=== PATIENT | female | born 1960 | race Caucasian/White ===

== ENCOUNTER 2017-11-27 15:35 | Inpatient (IN) | payer OTHER ==
[~2017-11-27] VITALS: Ht 177.8 cm; Wt 88.5 kg
[~2017-11-27 15:35] MED LIST: AMITRIPTYLINE H10 M1; AUGMENTIN 875875 MG PO; BENTYL 20 MG TA20 M1 PO; BENTYL20 MG PO; BLADDER 2.2 TA1 EACH PO; CALCIUM 500 +1 EAC5; CIPRO250 M1 PO; CLARITIN; DICLOFENAC SODI75 MG; FLEXERIL PO; LOPRESSOR; MAGNESIUM100 MG PO; MEDROL DOSPAK21 TA1 PO; NEXIUM40 MG PO; OMEPRAZOLE; PERCOCET 5-3251 EACH PO; PERCOCET 7.5-31 EACH PO; PRILOSEC 20 MG20 MG PO; REGLAN 10 MG TA10 MG PO; TOPROL XL25 MG; ZANTAC 150MG T150 M1 PO; ZOFRAN ODT4 MG PO; ZOFRAN4 MG PO
[2017-11-27] MEDS ORDERED: ROPINIROLE HCL2 MG PO (15:43)
[2017-11-27] MEDS ORDERED: FLEXERIL PO (15:44)
[2017-11-27] MEDS ORDERED: TOPROL XL25 MG PO (15:45)
[2017-11-27] MEDS ORDERED: ZANTAC 150MG T150 MG PO (15:47)
[2017-11-27] MEDS ORDERED: NEURONTIN100 MG PO (15:47)
[2017-11-27] MEDS ORDERED: ALLERGY10 M2 PO (15:49)
[2017-11-27] MEDS ORDERED: CENTRUM SILVER1 EAC4 PO (15:50)
[2017-11-27] MEDS ORDERED: COLACE100 MG PO (15:51)
[2017-11-27] MEDS ORDERED: ACYCLOVIR 400400 MG PO (15:54)
[2017-11-27] MEDS ORDERED: ZOVIRAX5 GM TOP (15:56)
[2017-11-27] MEDS ORDERED: ENOXAPARIN40 MG/0.1 SUBQ (15:57)
[2017-11-27] MEDS ORDERED: OXYCODONE HCL 55 MG PO (15:59)
[2017-11-27] MEDS ORDERED: OXYCODONE HCL10 MG PO (16:03)
[2017-11-27 18:00] VITALS: BP 118/77
--- NOTE | 2017-11-27 19:03 | NUR ---
PT. ARRIVED PER W/C VAN TO ROOM 321 ALERT ORIENTED PLEASANT COOPERATIVE. HX OF FALL WITH L FEMUR FX ORIF 11/24 20% WB FLAT L FOOT. TRANSFERS WITH SBA G BELT WALKER FROM W/C TO BED. NEEDED ASSIST TO LIFT L FOOT LEG INTO BED. ANSWERS QUESTIONS APPROPRIATELY WITH ASSESSMENT. ORIENTED TO ROOM REHAB ROUTINE. USE OF CALL LIGHT FOR ASSIST. L LEG HAS EDEMA PRESENT THIGH AND KNEE MORE SO WEARS DIANDRA HOSE BILATERALLY. ALSO SCD TO RT. LEG AT HS. RATES PAIN A 7 ON PAIN SCALE. UP TO BSC TO VOID X 1. REPORT GIVEN TO NIGHT NURSE.
--- NOTE | 2017-11-27 23:38 | NUR ---
ASSUMED CARE AT 1930. PATIENT S/P FALL WITH FX LT FEMUR. DRESSINGS C/D/I. RESTING IN BED. UP TO BSC TO VOID ONCE, UP TO TOILET ANOTHER TIME. STATES THAT SHE WILL PREFER USING BSC FOR NOW. NEEDS HELP GETTING LEFT LEG INTO BED. CAN MOVE HERSELF IN BED. TURNS SELF. LT LEG ELEVATED AND HEELS OFFLOADED. TAKES PILLS WHOLE WITH WATER. STATES SHE HAD LOVENOX THIS AM, SO NOT GIVEN TONOC. MEDICATED FOR PAIN WITH GOOD RELIEF, SEE MAR. HX MANY ALLERGIES. STATES ALLERGY TO VALACYCLOVIR. WAS ORDERED ACYCLOVIR, BUT HAD NOT TAKEN DOSE. DISCUSSED WITH PATIENT AND SHE THINKS SHE HAD SEVERE HIVES WITH IT PRIOR. PATIENT DECIDED NOT TO TAKE ACYCLOVIR, PHARMACY NOTIFIED. PATIENT STATES THAT THE PHYSICIANS AT [facility] WANTED HER TO HAVE TWO ENSURES A DAY AND SHE WANTS YOGURT DAILY. THESE COMMUNICATED ON VP SOFTWARE ENGINEERING CONSULT. SEE ORDERS. WEIGHT BEARING RESTRICTIONS OBSERVED. CALL LITE IN REACH. BED ALARM ON. HOURLY ROUNDS CONTINUE.
[2017-11-28 04:03] LABS: HEMATOCRIT 21.8 % (37.0-47.0); HEMOGLOBIN 7.5 gm/dL (12.0-15.0); MCH 34.1 pg (26.0-34.0); MCHC 34.1 g/dL (28.0-37.0); MCV 99.9 fL (80.0-100.0); MPV 8.5 fl. (7.2-11.1); RBC 2.19 mil/uL (4.20-5.00); RDW-CV 13.9 % (10.5-14.5); WBC 6.3 thou/uL (4.0-11.0)
[2017-11-28 04:09] LABS: CALCIUM 8.3 mg/dL (8.5-10.1); CREATININE 0.6 mg/dL (0.6-1.3)
--- NOTE | 2017-11-28 06:05 | NUR ---
RESTED IN BED ALL SHIFT. UP TO VOID ONCE PER TOILET, OTHER TIMES PER BSC. NO LIFTING/LOWERING ASSIST NEEDED, PATIENT ABLE TO STAND PIVOT FROM BED TO BSC. DOES OWN HYGIENE. MEDICATED THREE TIMES FOR PAIN THIS SHIFT WITH GOOD RELIEF. ENCOURAGED PAIN MEDS PRIOR TO THERAPIES. ABLE TO POSITION SELF IN BED. TAKES PILLS WHOLE WITH WATER. HOURLY ROUNDS CONTINUE. BED ALARM ON. CALL LITE IN REACH.
[2017-11-28 08:00] VITALS: BP 124/71
[2017-11-28 08:12] VITALS: BP 129/71
--- NOTE | 2017-11-28 09:37 | NUR ---
Nutrition: Pt admitted to Rehab with Lt femur FX. Usual wt is ~200#. Consult received for pt requesting Boost b.i.d. and yogurt daily - RD ordered these. Labs, RX, hx noted. Pt appears at low nutrition risk. Will follow weekly.
--- NOTE | 2017-11-28 11:17 | NUR ---
PT CARE ASSUMED AT 0730, ASSESSMENT AND VITAL SIGNS COMPLETED DOCUMENTED. PLAN OF CARE AND THERAPY EXPLAINED TO PT. FALL PRECAUTIONS AND HOURLY ROUNDING HAVE BEEN IMPLEMENTED. DRESSINGS C/D/I TO LEFT HIP, THIGH AND KNEE. PRN PAIN MEDICATIONS GIVEN WITH GOOD RELIEF OBTAINED. NO ACUTE DISTRESS AT THIS TIME, WILL CONTINUE TO MONITOR.
--- NOTE | 2017-11-28 15:24 | NUR ---
SW met with pt to complete initial assessment, introduce self, and SW role. Pt alert at times during conversation and oriented although very sleepy at times. Pt lives at home with her and her works 10 hr shifts and also is still healing from hip surgery so would not be able to assist pt physically. Pt said she has children but that they live in [place] and are supportive but would not be able to assist with needs so pt goal is to be close to independent at dc. SW reviewed team conference summary with pt. Plan for team to reteam pt length of stay during next team conference on Tuesday 12/05. Pt did not have any questions or concerns at this time. SW to continue to follow to assist with safe dc planning.
[2017-11-28 19:50] VITALS: BP 116/46
--- NOTE | 2017-11-28 19:50 | NUR ---
SITTING UP IN BED VISITING WITH SEVERAL VISITORS. FLEXERIL GIVEN. STATES LEFT HIP PAIN AT A "7" BUT TOO SOON FOR OXY IR. LEFT HIP DRESSINGS DRY/INTACT. SNACK PROVIDED.
--- NOTE | 2017-11-29 05:10 | NUR ---
AT BEDTIME AMBULATED TO THE BATHROOM WITH SBA, GAITBELT, WALKER. NEEDED ASSIST WITH LIFTING LEFT LEG ONTO A STEP STOOL WHILE SITTING ON THE TOILET. DOES OWN HYGIENE. MINIMAL ASSIST WITH CLOTHING DUE TO STEADYING ASSIST. VOIDED PER BEDSIDE COMMODE X 2 DURING THE NIGHT. LAST GIVEN PAIN MEDS AT 0447 FOR C/O HIP PAIN RATED "7". HOURLY ROUNDING IN PROGRESS.
[2017-11-29 08:00] VITALS: BP 107/64
--- NOTE | 2017-11-29 16:47 | NUR ---
PATIENT HAS BEEN A/O X 4 THIS SHIFT. MEDICATED FOR LEFT HIP PAIN WITH PARTIAL RELIEF NOTED WITH PRN OXY IR AND FLEXERIL. ICE PACKS PROVIDED AFTER THERAPY SESSIONS TO LEFT HIP. DIANDRA HOSE IN PLACE, DRESSING INTACT TO LEFT HIP. PATIENT HAS BEEN TOE TOUCH WEIGHT BEARING TO LEFT LEG. ATTENDED THERAPIES THIS SHIFT. UP WITH ASSIST OF 1 WITH GB AND WALKER, STAFF ASSISTING WITH LEFT LEG. PATIENT TO DINING ROOM FOR MEALS. BOOST SUPPLEMENTS PROVIDED REQUESTED. HAS HAD BILATERAL LEGS ELEVATED WHILE IN BED. STARTED ON MIRALAX THIS SHIFT FOR CONSTIPATION. AT BEDSIDE THIS AFTERNOON. FALL PRECAUTIONS IN PLACE. HOULRY ROUNDING COMPLETED. CALL LIGHT WITHIN REACH AND ABLE TO MAKE NEEDS KNOWN.
[2017-11-29 20:00] VITALS: BP 111/60
--- NOTE | 2017-11-30 05:05 | NUR ---
ASSUMED PT CARE AT 1930. PT ALERT AND ORIENTED X4, PLEASANT AND COOPERATIVE WITH CARES. PT UP TO BSC WITH SBA, GAITBELT AND WALKER. PT NEEDS ASSIST LIFTING LEFT LEG ONTO A STEP STOOL WHILE SITTING ON THE COMMODE. DOES OWN PERICARES. DRESSING INTACT TO LEFT HIP. PT IS TTWB TO LEFT LEG AND RLE WBAT. BILATERAL LEGS ELEVATED WHILE IN BED. ICE PACKS PROVIDED FOR LEFT HIP. VOIDED PER BSC X2 OVERNIGHT. PRN PAIN MEDICATION X2 OVERNIGHT AND FLEXERIL X1. FALL PRECAUTIONS IN PLACE. BED ALARM ON FOR SAFETY. CALL LIGHT AND FREQUENTLY USED ITEMS WITHIN REACH. HOURLY ROUNDING IN PROGRESS.
[2017-11-30 07:00] VITALS: BP 105/59
[2017-11-30 08:00] VITALS: BP 105/59
--- NOTE | 2017-11-30 16:35 | NUR ---
AM ASSESSMENT AND VITAL SIGNS COMPLETED DOCUMENTED. PT STARTED THE MORNING COMPLAINING OF EXTREME PAIN. PRN PAIN MEDICATION GIVEN WITH GOOD RESULTS. PT ALSO TAKING FLEXERIL AND GABAPENTIN. DRESSINGS TO LEFT HIP AND THIGH ARE C/D/I. PT IS PLEASANT AND COOPERATIVE BUT HAS A TENDENCY TO GET ANXIOUS VERY EASILY. REASSURANCE GIVEN NEEDED. PT TRANSFERS AND AMBULATES SHORT DISTANCES WITH GAIT BELT, WALKER AND MIN ASSIST. PT IS PROGRESSING TOWARD DISCHARGE GOALS. HOURLY ROUNDING AND FALL PRECAUTIONS IN PLACE.
[2017-11-30 20:00] VITALS: BP 115/50
--- NOTE | 2017-12-01 05:09 | NUR ---
ASSUMED PT CARE AT 1930. PT ALERT AND ORIENTED X4, PLEASANT AND COOPERATIVE WITH CARES. PT REQUESTING TO BE AWAKENED Q4 HOURS FOR PRN PAIN MEDICATION. PT UP TO BSC WITH SBA, GAIT BELT AND WALKER. PT NEEDS ASSIST LIFTING LEFT LEG ONTO STEP STOOL WHILE SITTING ON COMMODE. PT ABLE TO LIFT LEFT LEG INTO BED ONCE WITHOUT ASSIST. DOES OWN PERICARES. DRESSING TO LEFT HIP C/D/I. PT IS TTWB TO LEFT LEG AND RLE WBAT. BILATERAL LEGS ELEVATED WHILE IN BED. ICE PACKS PROVIDED FOR LEFT HIP. VOIDED PER BSC X3 OVERNIGHT. FALL PRECAUTIONS IN PLACE. BED ALARM ON FOR SAFETY. CALL LIGHT AND FREQUENTLY USED ITEMS WITHIN REACH. HOURLY ROUNDING IN PROGRESS.
[2017-12-01 08:00] VITALS: BP 110/63
[2017-12-01 11:54] LABS: HEMATOCRIT 24.7 % (37.0-47.0); HEMOGLOBIN 8.2 gm/dL (12.0-15.0); MCH 34.4 pg (26.0-34.0); MCHC 33.2 g/dL (28.0-37.0); MCV 103.6 fL (80.0-100.0); MPV 7.4 fl. (7.2-11.1); NUCLEATED RBCS 0 /100WBC; PLATELET COUNT* 374 thou/uL (150-400); RBC 2.39 mil/uL (4.20-5.00); WBC 6.5 thou/uL (4.0-11.0)
[2017-12-01 12:01] LABS: CALCIUM 8.9 mg/dL (8.5-10.1); CREATININE 0.6 mg/dL (0.6-1.3)
[2017-12-01 12:10] LABS: ABSOLUTE EOSINOPHILS 0.4 thou/uL (0.0-0.7); ABSOLUTE MONOCYTES 0.3 thou/uL (0.0-1.2); ABSOLUTE NEUTROPHILS 3.8 thou/uL (1.6-8.1); ATYPICAL LYMPHS 3 %
[2017-12-01 12:11] LABS: PLATELET ESTIMATE ADEQUATE
--- NOTE | 2017-12-01 16:22 | NUR ---
AM ASSESSMENT AND VITAL SIGNS COMPLETED DOCUMENTED. PT HAS HAD A GOOD DAY, COMPLETING ALL THERAPY SESSIONS WITH INTERMITTENT REST PERIODS. PAIN WELL CONTROLLED WITH OXY IR, GABAPENTIN AND FLEXERIL. COLD PACKS PLACED ON LEFT HIP AND THIGH SEVERAL TIMES FOR SHORT PERIODS. PT HAS NOT REQUIRED ANY ASSISTANCE WITH LIFTING HER LEG INTO OR OUT OF BED, SHE IS PLEASED WITH HER PROGRESS. FALL PRECAUTIONS AND HOURLY ROUNDING CONTINUE.
[2017-12-01 20:00] VITALS: BP 105/66
--- NOTE | 2017-12-02 05:04 | NUR ---
ASSUMED PT CARE AT 1930. PT ALERT AND ORIENTED X4, SITTING UP IN BED VISITING WITH . PLEASANT AND COOPERATIVE WITH CARES. PT REQUESTING TO BE AWAKENED FOR PAIN MEDICATION Q4 OVERNIGHT. PT UP TO BSC WITH GAIT BELT AND WALKER. PT DOES OWN PERICARES. PT NEEDS ASSIST TO GET LEGS BACK IN BED AND LEFT FOOT ONTO STEP STOOL WHILE SITTING ON COMMODE. DRESSING TO LEFT HIP C/D/I. ICE PACKS PROVIDED FOR PAIN RELIEF. VOIDED PER BSC X3 OVERNIGHT. FALL PRECAUTIONS IN PLACE. BED ALARM ON FOR SAFETY. USES CALL LIGHT APPROPRIATELY. CALL LIGHT AND FREQUENTLY USED ITESM WTIHIN REACH. HOURLY ROUNDING IN PROGRESS, WILL CONTINUE TO MONITOR.
--- NOTE | 2017-12-02 07:02 | NUR ---
PT REQUESTED PRN TYLENOL AND ICE STATING THAT SHE WAS IN INCREASED PAIN "ALL OF A SUDDEN" ASCRIBING SAME TO THE CHANGE IN THE WEATHER.
[2017-12-02 08:00] VITALS: BP 100/47
--- NOTE | 2017-12-02 09:51 | NUR ---
AM ASSESSMENT AND VITAL SIGNS COMPLETED DOCUMENTED. PT AWAKE AND SITTING IN RECLINER. PAIN WELL CONTROLLED AT THIS TIME. PT'S IS HERE AND THEY ARE READING THE BIBLE WITH TENRIISM MUSIC PLAYING. CALL LIGHT WITHIN REACH. FALL PRECAUTIONS AND HOURLY ROUNDING CONTINUE.
--- NOTE | 2017-12-02 18:42 | NUR ---
PT HAS RESTED INTERMITTENTLY TODAY, HAS HAD MULTIPLE VISITORS HERE. PRN PAIN MEDICATION AND COLD PACKS USED TO MANAGE PAIN. PT IS NOW SBA WITH MOST ACTIVITIES, USES A GAIT BELT AND WALKER. HOURLY ROUNDING AND FALL PRECAUTIONS IN PLACE.
[2017-12-02 20:00] VITALS: BP 108/56
[2017-12-03 04:17] LABS: HEMOGLOBIN 8.1 gm/dL (12.0-15.0); MCH 34.9 pg (26.0-34.0); MCHC 33.8 g/dL (28.0-37.0); MCV 103.2 fL (80.0-100.0); MPV 7.7 fl. (7.2-11.1); RBC 2.32 mil/uL (4.20-5.00); RDW-CV 15.4 % (10.5-14.5); WBC 7.5 thou/uL (4.0-11.0)
[2017-12-03 04:33] LABS: CALCIUM 8.5 mg/dL (8.5-10.1); CREATININE 0.7 mg/dL (0.6-1.3); POTASSIUM 4.6 mmol/L (3.5-5.1)
--- NOTE | 2017-12-03 05:27 | NUR ---
ASSUMED CARES AT 1920. PT ALERT AND ORIENTED. PLEASANT. S/P LEFT FEMUR ORIF. 20% TTWB LLE. DRESSINGS INTACT TO LEFT LEG. TAKES PILLS WHOLE WITHOUT ISSUES. PT REQUESTED TO BE AWAKEN FOR PAIN MEDS EVERY 4 HRS. KNEE HIGH TEDS REMOVED AT HS. SHE IS A MIN ASSIST WITH GAIT BELT AND WALKER. DID GET UP TO BATHROOM DURING THE NIGHT INSTEAD OF USING BSC. DOES OWN CARES. ICE PACK TO LLE PRN. PT SLEPT OFF AND ON. USED CALL LIGHT APPROPRIATELY. HOURLY ROUNDING COMPLETED.
[2017-12-03 08:00] VITALS: BP 123/70
--- NOTE | 2017-12-03 16:10 | NUR ---
ASSUMMED CARE OF PT AT 0730, PT ALERT AND ORIENTED, TRANSFERS WITH SBA, GB WALKER, AMBULATES TO BATHROOM, PT COMPLAINS OF PAIN IN LEFT LEG, MEDICATED PER ORDERS, DRESSING TO LEFT LEG INCISION C/D/I. TAKING FOOD AND FLUIDS WELL, THIGH HI TEDS, PARTICIPATED IN ALL THERAPIES, HOURLY ROUNDING COMPLETED, ASSESSMENT COMPLETE, WILL CONTINUE TO MONITOR.
[2017-12-03 20:00] VITALS: BP 120/70
--- NOTE | 2017-12-04 05:15 | NUR ---
ASSUMED PT CARES AT 1930. PT ALERT AND ORIENTED X4, POLITE AND COOPERATIVE WITH CARES. S/P LEFT FEMUR ORIF. 20% TTWB LLE. DRESSINGS TO LEFT LEG C/D/I. PRN PAIN MEDICATION Q4 PER PT REQUEST. KNEE HIGH TEDS ON RIGHT LEG AND THIGH HIGH TEDS ON RIGHT LEG, BOTH REMOVED AT HS. PT UP TO BATHROOM TO VOID SEVERAL TIMES OVERNIGHT WITH GB AND WALKER. PT DOES OWN PERICARES. ICE PACK TO LLE PRN. CALL LIGHT AND FREQUENTLY USED ITEMS WITHIN REACH. USES CALL LIGHT APPROPRIATELY. HOURLY ROUNDING IN PROGRESS, WILL CONTINUE TO MONITOR.
[2017-12-04 08:00] VITALS: BP 122/76
--- NOTE | 2017-12-04 16:26 | NUR ---
SW called and spoke with pt Kelton as pt was resting and was with nurse. SW mentioned team conference tomorrow and pt said he felt pt was close to be ready to return home. Pt said that he and pt expressed possible need for a RW to be ordered at dc. Pt said that he did not have any concerns with pt dc. Pt said that he will be with pt at dc, will be her ride home, and that he will help make sure that she gets into the home and settled safely. SW to continue to follow.
--- NOTE | 2017-12-04 17:08 | NUR ---
ASSUMMED CARE OF PT AT 0730, PT ALERT AND ORIENTED, TRANSFERS WITH SBA GB WALKER, COMPLAINS OF PAIN IN LEFT LEG, MEDICATED PER ORDERS AND COLD PACKS APPLIED INTERMITTENTLY THRUOUT SHIFT, AMBULATES TO BATHROOM TO VOID, TAKING FOOD AND FLUIDS WELL, DRESSING TO LEFT LEG C/D/I. PARTICIPATED IN ALL THERAPIES, HOURLY ROUNDING COMPLETED, ASSESSMENT COMPLETE, WILL CONTINUE TO MONITOR
[2017-12-04 19:48] VITALS: BP 117/51
--- NOTE | 2017-12-05 05:08 | NUR ---
ASSUMED PT CARE AT 1930. PT ALERT AND ORIENTED X4, POLITE AND COOPERATIVE WITH CARES. S/P LEFT FEMUR ORIF. 20% TTWB LLE. DRESSING TO LEFT LEG C/D/I. PRN PAIN MEDICATION Q4 PER PT REQUEST. KNEE HIGH TEDS ON RIGHT LEG AND THIGH HIGH TEDS ON LEFT LEG, BOTH REMOVED AT HS. PT UP TO BATHROOM TO VOID SEVERAL TIMES OVERNIGHT WITH GB AND WALKER. PT DOES OWN PERICARES. ICE PACK TO LLE PRN. MIRALAX PRN PER PT REQUEST. STOOL X1 THIS SHIFT. CALL LIGHT AND FREQUENTLY USED ITEMS WITHIN REACH. USES CALL LIGHT APPROPRIATELY. HOURLY ROUNDING IN PROGRESS, WILL CONTINUE TO MONITOR.
[2017-12-05 07:30] VITALS: BP 114/61
[2017-12-05 13:17] VITALS: BP 114/61
--- NOTE | 2017-12-05 14:15 | NUR ---
SW met with pt to review team conference summary. Plan for pt to dc home with on Sunday. Pt in agreement with plan. Pt already has a rolling walker but would like another and SW to follow up with work comp to see if this is a possibility for the work comp to cover otherwise pt/pt discussed picking up a walker from a thrift store. SW discussed HH services to follow and SW to discuss with work comp the options...pt showed SW a list possibly [facility] would be covered through work comp. Pt to come in for family training arranged with pt and PT. SW to continue to follow to assist with safe dc planning.
--- NOTE | 2017-12-05 16:59 | NUR ---
ASSUMED CARE AT 0730 PATIENT ALERT/ORIENTED, UP WITH STANDBY ASSIST AND WALKER, DRESSING TO LEFT LEG IS CLEAN/DRY/INTACT. PAIN MEDS GIVEN REQUESTED, FLEXERIL GIVEN X1 THIS SHIFT. PARTICIPATED IN ALL THERAPIES TODAY, TO DINING ROOM FOR MEALS. BED/CHAIR ALARMS IN PLACE. CALL LIGHT IN REACH, HOURLY ROUNDING COMPLETED. PATIENT TO BE DISCHARGE HOME ON SUNDAY, FOLLOW UP APPOINTMENT WITH HANH CENTENO ON 12/12/17 WITH SUTURES TO BE REMOVED IN OFFICE.
[2017-12-05 19:45] VITALS: BP 130/71
--- NOTE | 2017-12-06 01:42 | NUR ---
ASSUMED CARE @ 1924-12/05-SUN.AWAKE IN BED W/ HOB UP WATCHING TV.TEDS OFF ALREADY OFF @ THIS TIME.REQUESTED ICE PACK TO LEFT LE @ 1944 & APPLIED. WARM BLANKET PUT ON PATIENT ALSO @ 1944.SEE FIRST PAIN MANAGEMENT @ 2009. BED ALARM PUT ON @ 2014.SBA FOR ALL TRANSFERS & TOILETING.20% WB LEFT LE OBSERVED DURING TRANSFERS & AMBULATION. CAME TO VISIT AFTER HIS WORK. SEE 2ND PAIN MANAGEMENT W/ PRN FLEXERIL @ 2302.ON HOURLY ROUNDS.
[2017-12-06 03:26] VITALS: BP 114/61
[2017-12-06] MEDS ORDERED: IRON325 PO (03:49)
[2017-12-06] MEDS ORDERED: TYLENOL325 MG PO (03:54)
--- NOTE | 2017-12-06 05:27 | NUR ---
SLEPT LATE.SLEEPING SINCE 0000-12/06-SUNDAY.AWAKE BRIEFLY @ 0100 & @ 0500-FOR 3RD PAIN MANAGEMENT W/ 2 PACKAGES EMILY CRACKERS.BRP W/ WALKER W/ SBA X4.TOOK ALL APPLE JUICE X2 W/ BISCUIT & EGGS HS SNACKS. BROUGHT HS SNACKS. MODIFIED IND W/ WALKER TODAY-12/06-SUNDAY.FOR DISCHARGE SUNDAY-12/07.
[2017-12-06 07:52] VITALS: BP 118/65
--- NOTE | 2017-12-06 16:26 | NUR ---
SW spoke with pt about finalizing safe dc plans. Pt to dc home with tomorrow. SW spoke with work comp and rep from company they use to arrange DME and HH. Orders faxed to rep who plans to arrange for RW, tub bench, and toilet riser and HH. SW to continue to follow to finalize dc for Sunday.
--- NOTE | 2017-12-06 16:37 | NUR ---
ASSUMED CARE AT 0730 PATIENT ALERT/ORIENTED, PAIN MEDS GIVEN REQUESTED FOR LEFT LEG PAIN, DRESSING TO LEFT LEG C/D/I, UP MOD I IN ROOM. PARTICIPATED IN ALL THERAPIES TODAY, TO DINING ROOM FOR MEALS, CALL LIGHT IN REACH. TO BE DISCHARGED HOME TOMORROW. HOURLY ROUNDING COMPLETED.
[2017-12-06 19:20] VITALS: BP 119/64
[2017-12-06] MEDS ORDERED: COLACE100 MG PO (23:24)
[2017-12-06] MEDS ORDERED: SENNA8.6 MG PO (23:27)
[2017-12-06] MEDS ORDERED: ENOXAPARIN40 MG/0.1 PO (23:31)
--- NOTE | 2017-12-07 00:40 | NUR ---
ASSUMED CARE @ 1914-12/06-.SITS IN RECLINER WATCHING TV W/ LE'S UP.WEARING KNEE HIGH TEDS -RIGHT LE.WEARING THIGH HIGH TEDS-LEFT LE.ICE PACK APPLIED TO LEFT LE FROM 1919 TO 2119.MODIFIED IND.W/ WALKER BUT INSTRUCTED TO CALL FOR SBA IF TOO SLEEPY FOR BRP DURING NIGHT.NOTED THAT ORTHO SURGEON PRESCRIBED LOVENOX AFTER DC FROM [facility].CENTER 11/27.HAS GIVEN LOVENOX SHOT TO SELF IN THE PAST.LOVENOX TEACHING GIVEN @ 2019.C/O SORE THROAT BUT REFUSED WARM SALINE GARGLE @ 2119.20% WB LEFT LE OBSERVED DURING TRANSFERS & AMBULA- TIONS.SEE PAIN MANAGEMENT W/ PRN FLEXERIL @ 2223.ON HOURLY ROUNDS.
--- NOTE | 2017-12-07 05:23 | NUR ---
SLEEPING SINCE 2200.AWAKE ONCE FOR BRP & FOR PAIN MED @ 0300. BROUGHT CHICKEN SANDWICH W/C PATIENT ATE ALL HS SNACK.FOR DISCHARGE TODAY 12/07- -SUNDAY SOMETIME AFTER LUNCH.
[2017-12-07 07:47] VITALS: BP 116/69
[2017-12-07 10:53] VITALS: BP 114/61
[2017-12-07 11:32] VITALS: BP 114/61
--- NOTE | 2017-12-07 11:42 | NUR ---
SW discussed final dc plans with pt. Pt ready to dc home and pt providing pt ride home. HH services to follow. Hortensia Bhagat, arranging HH services [phone]. [employer] approved RW...arranged through work comp. Provider Yeison also delivering toilet riser and tub bench to pt home. Pt wondered about wc for community use and plans to use wc at hospitals/doctor's offices when needed. No other concerns or dc needs noted.
--- NOTE | 2017-12-07 11:55 | NUR ---
ASSUMED CARE AT 0730. ALERT ORIENTED PLEASANT COOPERATIVE. HX OF L FEMUR FX 20% WBLLE. MODIFIED INDEPENDENT IN ROOM UP WITH WALKER SAFELY. APPETITE FAIR TAKES MEDS WITHOUT DIFFICULTY. MEDICATED X 1 WITH FLEXERIL AND OXY IR THIS A.M. PER PT. REQUEST. RATED PAIN A 7 ON PAIN SCALE. PARTICIPATING IN THERAPIES THIS A.M. VERBALIZED UNDERSTANDING OF DISCHARGE INSTRUCTIONS ALLOWED TIME FOR QUESTIONS. SCRIPTS AND WALKER GIVEN TO PT. ALONG WITH DISCHARGE INSTRUCTIONS. HERE TO TRANSPORT PT. HOME PER PRIVATE CAR.
[2017-12-07 11:56] VITALS: BP 114/61
--- NOTE | 2017-12-25 13:29 | PLAN ---
[address] [address] REHAB UNIT PLAN OF CARE Name: BIAPALMER MAE Room: [address] IN ..#: [id number] Admission: 11/27/17 Attend Phys: Татьяна Bruce DO Discharge: 12/07/17 Date of : 56 Report #: [id number] THIS REPORT FOR: //name// CC: Holden Bruce This is a 57-year-old female admitted to inpatient rehabilitation to facilitate safe discharge home, status post acute hospitalization for left femur fracture status post ORIF of the left lower extremity toe touch weightbearing at 20% and right lower extremity weightbearing as tolerated. She has a previous level of function of independent with activities of daily living and a current level of function as minimum to moderate assistance of 1-2 depending on therapy, activity and time of day and dependent with lower body dressing. Comprehension, expression, problem solving and memory are within functional normal limits. MEDICAL PROGNOSIS: Good. REHABILITATION PROGNOSIS: Good. Estimated length of stay is 12-14 days with discharge disposition to the home setting with supportive family where she lives in a house, no steps to enter, 12 steps inside. Physical therapy will see the patient 60-90 minutes per day, 5 days per week, working on upper and lower body strength, balance, coordination, navigation. On balance, coordination, ambulation and stairs while maintaining weightbearing as tolerated and toe touch weightbearing. Occupational therapy will work with the patient 60-90 minutes per day, 5 days per week, working on upper and lower body strength, balance, coordination, navigation, bathing, dressing, and toileting 60-90 minutes per day, 5 days per week. This is an overall plan of care, may change from time to time. We will team weekly and make changes to plan of care as needed. <ELECTRONICALLY SIGNED> By: Татьяна Bruce DO 12/25/17 1329 [id number] Bruce DO /nt
--- NOTE | 2017-12-25 13:29 | H ---
[address] [address] HISTORY AND PHYSICAL Name: PALMER AMEZQUITA Room: [address] IN ..#: [id number] Admission: 11/27/17 Attend Phys: Татьяна Bruce, Discharge: 12/07/17 Date of : 56 Report #: [id number] THIS REPORT FOR: //name// CC: Holden Bruce DATE OF SERVICE: 11/28/2017 HISTORY OF PRESENT ILLNESS: This is a 57-year-old female admitted to inpatient rehabilitation to facilitate safe discharge home status post left femur fracture. She had a fall at work after tripping on a mat and landed on her left knee. She had immediate pain, deformity and was unable to bear weight on the left side. She was scene at [facility] and diagnosed with a L comminuted displaced femur fracture and is now s/p ORIF on 11/24/17 and now has LLE TTWB of 20% and WBAT RLE. No significant changes since the PAS. PLOF was independant with ADLs. CLOF is min to mod assist with PT and OT and dependant with LB dressing. ELOS is 12-14 days with DC to home with supportive family. PAST MEDICAL HISTORY: GERD, SVT, OA, anemia, constipation. PAST SURGICAL HISTORY: Appendectomy, tubal ligation, tonsillectomy. ALLERGIES: CEPHALOSPORINS, SULFA, CIPRO, BAND-AID, LATEX. REVIEW OF SYSTEMS: A 14-point review of systems is negative except as mentioned in HPI. PE: Alert oriented, nad HEENT: atraumatice Lungs: symmetric expansion Skin: warm and dry, incision intact MSK: no clubbing cyanosis or edema Neuro: 5/5 strength in the BLLE and BLUE ASSESSMENT: Status post left femur fracture, status post open reduction internal fixation on 11/24/2017 with left supracondylar femur prosthetic fracture. PLAN: Admission to inpatient rehabilitation. PT, [place] [address] HISTORY AND PHYSICAL Name: PALMER AMEZQUITA Room: [address] IN [facility].#: [id number] Admission: 11/27/17 Attend Phys: Татьяна Bruce DO Discharge: 12/07/17 Date of : 56 Report #: [id number] Hip precautions 20% WB on LLE and WBAT RLE POC pending, team weekly Med rec completed <ELECTRONICALLY SIGNED> By: Татьяна Bruce DO 12/25/17 1329 [id number] Bruce DO /nt
--- NOTE | 2017-12-25 13:30 | D ---
[facility] [address] [place] [address] DISCHARGE SUMMARY Name: PALMER AMEZQUITA Room: [address] IN M.R.#: [id number] Admission: 11/27/17 Attend Phys: Татьяан Bruce DO Discharge: 12/07/17 Date of : 56 Report #: [id number] THIS REPORT FOR: //name// CC: Holden Bruce DATE OF SERVICE: 12/07/2017 DISCHARGE DIAGNOSIS: Status post left femur fracture. This is a 57-year-old female who was at work, did have a fall from standing height, tripping on a mat, landing on her left knee with immediate pain and deformity. Unable to bear weight. She is status post ORIF on 11/24/2017. She now has left lower extremity toe touch weightbearing of 20% and weightbearing as tolerated on the right lower extremity. She did well with her therapies, did progress to modified independent level of care in her room. MEDICATIONS: Reviewed and reconciled by myself and are available in the MAR. She will follow with Orthopedic Surgery within 1-2 weeks and her primary care physician within 1 week. Maintain fall precautions. Regular diet. Maintain weightbearing instructions. Home health PT, OT and nursing. DISCHARGE PHYSICAL EXAMINATION: GENERAL: Alert, oriented, in no apparent distress. VITAL SIGNS: Reviewed and are stable. HEENT: Head atraumatic, normocephalic. Pupils equal, round, reactive. ABDOMEN: Soft, nontender, nondistended. NEUROLOGIC: Cranial nerves 2-12 grossly intact. No focal neuro deficits, 5/5 strength in the bilateral upper and lower extremities. SKIN: Warm and dry. No rashes or lesions noted. <ELECTRONICALLY SIGNED> By: Татьяна Bruce DO 12/25/17 1330 [id number] Bruce DO /nt
== END 2017-12-07 11:56 | disposition home health service (06) | DRG 534 ==
LOC: M.REH 15:35
PROVIDERS: Family Medicine; ADMIT Physical Medicine & Rehabilitation
DX: S72.452A Displaced supracondylar fracture without intracondylar extension of lower end of left femur, initial encounter for closed fracture (principal); M97.12XA Periprosthetic fracture around internal prosthetic left knee joint, initial encounter; D62 Acute posthemorrhagic anemia; M17.0 Bilateral primary osteoarthritis of knee; K21.9 Gastro-esophageal reflux disease without esophagitis; Z96.653 Presence of artificial knee joint, bilateral; Z90.49 Acquired absence of other specified parts of digestive tract; Z88.2 Allergy status to sulfonamides; Z88.8 Allergy status to other drugs, medicaments and biological substances; Z88.1 Allergy status to other antibiotic agents; Z91.040 Latex allergy status; Z87.01 Personal history of pneumonia (recurrent); Z79.899 Other long term (current) drug therapy; W19.XXXA Unspecified fall, initial encounter; Y93.89 Activity, other specified; Y92.89 Other specified places as the place of occurrence of the external cause; Y99.8 Other external cause status